=== PATIENT | female | born 1985 | race Hispanic/Latino ===

== ENCOUNTER 2018-09-07 22:16 | Emergency (ER) | payer BC, MEDICAID ==
[2018-09-07 22:37] VITALS: TEMP 98.3; BMI 44.2
--- NOTE | 2018-09-07 22:57 | ED PDOC ---
Arrival/HPI - General Chief Complaint: Lower Extremity Problem/Injury Time Seen by Provider: 09/07/18 22:53 Historian: Patient - History of Present Illness Narrative History of Present Illness (Text): 33 y/o F w/ no significant PMH presenting to the ED for tingling in the foot. The patient states she was ambulating with damp feet without socks all day and was unable to change into a different set of shoes Time/Duration: 24 hours Symptom Onset: Gradual Activities at Onset: Rest Context: Walking, Home, Work, Street Past Medical History - Past History Past History: Non-Contributing - Infectious Disease Hx of Infectious Diseases: None - Tetanus Immunization Tetanus Immunization: Unknown - Cardiac Hx Cardiac Disorders: No - Pulmonary Hx Respiratory Disorders: No - Neurological Other/Comment: brain - HEENT Hx HEENT Disorder: No - Renal Hx Renal Disorder: No - Endocrine/Metabolic Hx Endocrine Disorders: No - Hematological/Oncological Hx Blood Disorders: No - Integumentary Hx Dermatological Disorder: No - Musculoskeletal/Rheumatological Hx Musculoskeletal Disorders: No - Gastrointestinal Hx Gastrointestinal Disorders: No - Genitourinary/Gynecological Hx Genitourinary Disorders: Yes Other/Comment: PCOS - Psychiatric Hx Depression: No Hx Emotional Abuse: No Hx Physical Abuse: No Hx Substance Use: No - Past Surgical History Past Surgical History: Non-Contributing - Anesthesia Hx Anesthesia: No - Suicidal Assessment Feels Threatened In Home Enviroment: No Family/Social History Smoking Status: Never Smoked Hx Alcohol Use: No Hx Substance Use: No Hx Substance Use Treatment: No Allergies/Home Meds Allergies/Adverse Reactions: Allergies cranberry Allergy (Verified 09/07/18 22:36) RASH walnut Allergy (Verified 09/07/18 22:35) RASH artificial sweeteners Allergy (Uncoded 09/07/18 22:35) RASH Home Medications: Home Meds Medication Instructions Recorded Confirmed No Known Home Med 10/30/12 09/07/18 Physical Exam Vital Signs Temp Pulse Resp BP Pulse Ox 09/07/18 22:31 98.3 F 100 H 18 144/77 100 Disposition/Present on Arrival - Present on Arrival Any Indicators Present on Arrival: No History of DVT/PE: No History of Uncontrolled Diabetes: No Urinary Catheter: No History of Decub. Ulcer: No History Surgical Site Infection Following: None - Disposition Have Diagnosis and Disposition been Completed?: Yes Diagnosis: Trench foot Disposition: HOME/ ROUTINE Disposition Time: 22:55 Patient Plan: Discharge Patient Problems: Current Active Problems Problem Status Onset Trench foot Acute Condition: STABLE Discharge Instructions (ExitCare): Frostbite (DC), Athlete's Foot (DC) Additional Instructions: All medical record entries made by the Scribe were at my direction and personally dictated by me. I have reviewed the chart and agree that the record accurately reflects my personal performance of the history, physical exam, medical decision making, and the department course for this patient. I have also personally directed, reviewed, and agree with the discharge instructions and disposition. Please call the ED for a school social worker referral Referrals: [facility] at [facility] [Outside] - Follow up with primary Krissy Gil MD [Medical Doctor] - Follow up with primary Forms: Experiment (Urdu)
[2018-09-08 02:53] VITALS: BP 123/78; PULSE 80; RESP 16; O2SAT 99
== END 2018-09-07 23:15 | disposition home or self-care (01) ==
LOC: ED 22:16
DX: T69.022A Immersion foot, left foot, initial encounter (principal); T69.021A Immersion foot, right foot, initial encounter